=== PATIENT | female | born 1990 | race Caucasian/White ===

== ENCOUNTER 2017-01-06 21:25 | Observation (INO) | payer OTHER ==
[2017-01-06] MEDS ORDERED: TORADOL 30 MG VIAL IVP STA (23:04)
--- NOTE | 2017-01-06 23:07 | DR.GENAD ---
HPI - PCP Primary Care Physician: nfd - Complaint/Symptoms Chief Complaint Doctors Comments: Patient complains of pain and swelling left hand 4th finger for three days getting progressively worst today. States she was cleaning her nails with infection in the tip of her finger that spread up her hand. 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 States she does not have a local doctor. she is unsure of her last tetanus. she had been complaining of fever and chills with severe pain left hand. She denies chest pain, nasuea or vomiting. She denies SOB. Chief Complaint:: left hand 4th digit swollen and red. started 2 days ago. patient was cleaning under fingernail and thinks she went to far Self Treatment fo Chief Complaint: amoxicillin last dose a few hours ago and percocet for pain - Nurses notes reviewed Nurses Notes Review: Yes - Source History Provided: Patient - Mode of Arrival Mode of Arrival: Ambulatory - Timing Onset of Chief Complaint: 01/04/17 Came on: Gradually - Duration Duration: Constant How lon Duration: Days - Location Location: left hand 4th finger - Severity Severity: Moderate - Modifying Factors Worsens:: movement Improves:: nothing PMH - PMH Past Medical History: Yes Past Medical History: Seizures Past Surgical History: Yes Surgical History: Tonsillectomy - Family History History of Family Medical Conditions: No - Social History Does patient currently use any type of tobacco product: Yes Have you used tobacco products in the last 12 months: Yes Type of Tobacco Use: Cigarettes How many years tobacco product used: 10 Does any household member use tobacco: Yes Alcohol Use: Occasionally Do you use any recreational Drugs:: Yes (meth) Lives With: Dad, Mom Lives Where: Home - infectious screening In the last 2 months have you had wt loss of >10#?: NO Have you had fever, night sweats or hemotysis?: No Have you traveled outside the country in the last 6 months?: No Isolation: Standard ROS - Review of Systems Constitutional: No Symptoms Reported, Chills, Fever Eyes: No Symptoms Reported. negative: See HPI, Eye Pain, Blurred Vision, Tearing, Discharge, Photophobia, Diplopia, Other ENTM: No Symptoms Reported. negative: See HPI, Ear Pain, Ear Discharge, Pulling on Ears, Hearing Loss, Nose Pain, Nose Discharge, Epistaxis, Nose Congestion, Mouth Pain, Mouth Swelling, Loose Teeth, Drooling, Throat Pain, Throat Swelling, Ear Foreign Body Respiratoy: No Symptoms Reported. negative: See HPI, Productive Cough, Non- Productive Cough, Moist Cough, Dry Cough, Hacking Cough, Barking Cough, Brassy Cough, Orthopnea, Short of Breath, Stridor, Wheezing, Hemoptysis, Other Cardiovascular: No Symptoms Reported. negative: See HPI, Chest Pain, Edema, Palpitations, Syncope, Cyanosis, Skin Mottling, Other Gastrointestinal/Abdominal: No Symptoms Reported. negative: See HPI, Abdominal Pain, Constipation, Diarrhea, Nausea, Vomiting, Food Intolerance, Other Genitourinary: No Symptoms Reported. negative: See HPI, Discharge, Dysuria, Frequency, Hematuria, Pain, Bleeding, Other Neurological: No Symptoms Reported, Emotional Problems Musculoskeletal: No Symptoms Reported, Left, Hand (4th finger with swelling and black area at the tip and soft area at the time) Integumentary: No Symptoms Reported, Change in Color, Change in Hair/Nails, Lesions, Wound (left fourth finger swelling, dorsal hand swollen with erythema) Hematologic/Lymphatic: No Symptoms Reported Endocrine: No Symptoms Reported Psychiatric: No Symptoms Reported, Anxiety PE - Vital Signs Vitals: Temperature 98.4 F Pulse Rate 109 Respiratory Rate 24 Blood Pressure 166/110 O2 Sat by Pulse Oximetry 100 - General Limitations: No Limitations, Language Barrier General Appearance: Alert, In No Apparent Distress, In Distress (moderate) - Head Head Exam: Normal Inspection, Atraumatic, Normocephalic - Eyes Eye exam: Normal Appearance, PERRL, EOMI. negative: Scleral Icterus, Conjunctival Injection, Nystagmus, Miosis, Mydrasis, Periorbital Swelling, Periorbital Tenderness, Other - ENT ENT Exam: Normal Exam, Normal Oropharynx, Normal External Ear Exam, Mucous Membranes Moist, TM's Normal Bilaterally TM/Canal Exam: Bilateral Normal Nose Exam: Normal Nose Exam. negative: Sinus Tenderness, Nasal Deviation, Crepitus, Septal Hematoma, Laceration, Abrasion, Other Mouth Exam: Normal Inspection. negative: Drooling, Trismus, Lip Swelling, Tongue Elevation, Tongue Swelling, Laceration, Other Throat Exam: Normal Inspection. negative: Tonsillar Erythema, Tonsillomegaly, Tonsillar Exudate, R Peritonsillar Mass, L Peritonsillar Mass, Muffled Voice, Other - Neck Neck Exam: Normal Inspection, Full ROM, Trachea Midline. negative: Tenderness, Meningismus, Lymphadenopathy, Thyromegaly, Other - Chest Chest Inspection: Normal Inspection - Respiratory Respiratory Exam: Normal Lung Sounds Bilat Respiratory Exam: Bilateral Clear to Auscultation - Cardiovascular Cardiovascular Exam: Regular Rate, Normal Rhythm, Normal Heart Sounds - Abdominal Exam Abdominal Exam: Normal Inspection, Normal Bowel Sounds, Soft Abdominal Tenderness: negative: RUQ, RLQ, LUQ, LLQ, Epigastrium, Suprapubic, Diffuse, Mild, Moderate, Severe, Other - Extremities Extremities Exam: Normal Inspection, Full ROM, Tenderness (left hand with swelling 4th finger, 3rd finger with tip 4th with pustular; dorsal hand red, warm, tender.), Normal Capillary Refill - Back Back Exam: Normal Inspection, Full ROM - Neurologic Neurological Exam: Alert, Oriented X3, CN II-XII Intact, Normal Gait, Reflexes Normal - Psychiatric Psychiatric Exam: Normal Affect, Normal Mood - Skin Skin Exam: Warm, Dry, Intact, Normal Color. negative: Rash, Cyanosis, Diaphoresis, Erythema, Pallor, Mottled, Other Course - Consultation Called: :04 Call Returned: 01:04 (Dr. Moran to admit) - Education/Counseling Education/Counseling: Patient Educated On: Treatment, Diagnosis, Needs for Follow Up ROR - Labs Reviewed Laboratory Results Reviewed?: Yes (All labs and x-ray results reviewed and discussed with patient) Result Diagrams: 01/06/17 23:30 01/06/17 23:30 Laboratory: WBC 11.7 X10^3/uL (3.6-10.0) H 01/06/17 23:30 RBC 4.50 X10^6/uL (3.5-5.4) 01/06/17 23:30 Hgb 13.3 g/dL (12.0-16.0) 01/06/17 23:30 Hct 39.6 % (36.0-47.0) 01/06/17 23:30 MCV 88.1 fL (80.0-100.0) 01/06/17 23:30 MCH 29.5 pg (27.0-34.0) 01/06/17 23:30 MCHC 33.5 g/dL (33.0-35.0) 01/06/17 23:30 RDW 12.5 % (11.6-16.5) 01/06/17 23: Plt Count 238 X10^3/uL (150.0-450.0) 01/06/17: MPV 9.4 fL (7.4-11.0) 01/06/17 23: Neut % 67.1 % (42.0-75.0) 01/06/17: Lymph % 20.0 % (21.0-51.0) L 01/06/17 23: [place] % 10.7 % (0.0-13.0) 01/06/17: Eos % 1.2 % (0.9-2.9) 01/06/17: Baso % 1.0 % (0.2-1.0) 01/06/17: Neut # 7.8 x10^3/uL (2.2-4.8) H 01/06/17: Lymph # 2.3 X10^3/uL (1.3-2.9) 01/06/17 23: [place] # 1.2 x10^3/uL (0.3-0.8) H 01/06/17: Eos # 0.1 x10^3/uL (0.0-0.2) 01/06/17: Baso # 0.1 X10^3/uL (0.0-0.1) 01/06/17 23: Absolute Nucleated RBC 0.0 /100WBC 01/06/17 23: Sodium 141 mmol/L (136-145) 01/06/17 23: Corrected Sodium 141 mmol/L (136-145) 01/06/17 23: Potassium 4.5 mmol/L (3.5-5.1) 01/06/17: Chloride 103 mmol/L (98-107) 01/06/17: Carbon Dioxide 31.0 mmol/L (21-32) 01/06/17 23:30 BUN 9 mg/dL (7-18) 01/06/17 23: Creatinine 0.63 mg/dL (0.55-1.02) 01/06/17: Est GFR (MDRD) Af Amer > 60 (>60) 01/06/17 23:30 Est GFR (MDRD) Non-Af > 60 (>60) 01/06/17 23:30 Glucose 120 mg/dL (65-99) H 01/06/17 23:30 Calcium 9.2 mg/dL (8.5-10.1) 01/06/17 23:30 Corrected Calcium TNP 01/06/17 23:30 Total Bilirubin 0.30 mg/dL (0.2-1.0) 01/06/17 23:30 AST 24 Units/L (15-37) 01/06/17 23:30 ALT 23 Units/L (12-78) 01/06/17 23:30 Alkaline Phosphatase 130 Units/L (46-116) H 01/06/17 23:30 Total Protein 7.4 g/dL (6.4-8.2) 01/06/17 23:30 Albumin 3.7 g/dL (3.4-5.0) 01/06/17 23:30 Globulin 3.7 g/dL (2.5-4.5) 01/06/17 23:30 Albumin/Globulin Ratio 1.0 Ratio (1.1-2.1) L 01/06/17 23:30 HCG, Qual Negative <10 mIU/mL 01/06/17 23:30 Specimen Type Clean catch urine 01/07/17 00:11 Urine Color Yellow (YELLOW) 01/07/17 00:11 Urine Appearance Clear (CLEAR) 01/07/17 00:11 Urine pH 7.0 (5.0 - 8.0) 01/07/17 00:11 Ur Specific [place] 1.015 (1.000-1.030) 01/07/17 00:11 Urine Protein Negative (NEGATIVE) 01/07/17 00:11 Urine Glucose (UA) Negative (NEGATIVE) 01/07/17 00:11 Urine Ketones Negative (NEGATIVE) 01/07/17 00:11 Urine Occult Blood Negative (NEGATIVE) 01/07/17 00:11 Urine Nitrite Negative (NEGATIVE) 01/07/17 00:11 Urine Bilirubin Negative (NEGATIVE) 01/07/17 00:11 Urine Urobilinogen 1+ (NORMAL) 01/07/17 00:11 Ur Leukocyte Esterase 1+ (NEGATIVE) 01/07/17 00:11 Urine RBC 0-3 /HPF (NEGATIVE) 01/07/17 00:11 Urine WBC 1-4 /HPF (NEGATIVE) 01/07/17 00:11 Ur Squamous Epith Cells Numerous /HPF (NEGATIVE) 01/07/17 00:11 Urine Bacteria Trace /HPF (NEGATIVE) 01/07/17 00:11 Ur Culture Indicated? No/not ordered 01/07/17 00:11 Urine Opiates Screen Positive (NEG=<300) A 01/07/17 00:11 Urine Methadone Screen Negative (NEG=<300) 01/07/17 00:11 Ur Barbiturates Screen Negative (NEG=<200) 01/07/17 00:11 Ur Phencyclidine Scrn Negative (NEG=<25) 01/07/17 00:11 Ur Amphetamines Screen Positive (NEG=<1000) A 01/07/17 00:11 U Benzodiazepines Scrn Positive (NEG=<200) A 01/07/17 00:11 Urine Cocaine Screen Negative (NEG=<300) 01/07/17 00:11 U Marijuana (THC) Screen Positive (NEG=<50) A 01/07/17 00:11 - XRAY XRAY Interpreted by: Radiologist (left Hand x-ray: No acute fracture dislocation within the left hand; moderate soft tissue swelling) - Diagnosis Discharge Problem: Cellulitis of left hand, Hyperglycemia, multiple drug usage, Essential hypertension - Discharge Plan Disposition: ADMITTED INPATIENT Condition: Stable - Follow ups/Referrals Follow ups/Referrals: NFD,None [Primary Care Provider] - 3 days - Instructions
[2017-01-06] MEDS ORDERED: ADACEL TDaP IM ONE ×2 (23:13→23:53)
[2017-01-06] MEDS ORDERED: TORADOL 30 MG VIAL ONE (23:32)
[2017-01-06] MEDS: NS 1000 ML 1,000 ML IV SCH (23:46)
[2017-01-06 23:52] LABS: BASOPHILS # (AUTO) 0.1 X10^3/uL (0.0-0.1); EOSINOPHILS # (AUTO) 0.1 x10^3/uL (0.0-0.2); EOSINOPHILS % (AUTO) 1.2 % (0.9-2.9); HEMATOCRIT 39.6 % (36.0-47.0); HEMOGLOBIN 13.3 g/dL (12.0-16.0); LYMPHOCYTES # (AUTO) 2.3 X10^3/uL (1.3-2.9); MEAN CORPUSCULAR HEMOGLOBIN 29.5 pg (27.0-34.0); MEAN CORPUSCULAR HGB CONC 33.5 g/dL (33.0-35.0); MEAN CORPUSCULAR VOLUME 88.1 fL (80.0-100.0); MEAN PLATELET VOLUME 9.4 fL (7.4-11.0); MONOCYTES # (AUTO) 1.2 x10^3/uL (0.3-0.8); MONOCYTES % (AUTO) 10.7 % (0.0-13.0); NEUTROPHILS # (AUTO) 7.8 x10^3/uL (2.2-4.8); NEUTROPHILS % (AUTO) 67.1 % (42.0-75.0); PLATELET COUNT 238 X10^3/uL (150.0-450.0); RED CELL DISTRIBUTION WIDTH 12.5 % (11.6-16.5); WHITE BLOOD COUNT 11.7 X10^3/uL (3.6-10.0)
[2017-01-06 23:56] LABS: SERUM PREGNANCY TEST, QUAL NEGATIVE <10 mIU/mL
[2017-01-07] LABS: ALANINE AMINOTRANSFERASE 23 Units/L (12-78); ALBUMIN 3.7 g/dL (3.4-5.0); ALKALINE PHOSPHATASE 130 Units/L (46-116); ASPARTATE AMINO TRANSFERASE 24 Units/L (15-37); BLOOD UREA NITROGEN 9 mg/dL (7-18); CALCIUM 9.2 mg/dL (8.5-10.1); CHLORIDE 103 mmol/L (98-107); COR NA(FOR HYPERGLY) 141 mmol/L (136-145); CREATININE 0.63 mg/dL (0.55-1.02); GLUCOSE 120 mg/dL (65-99); SODIUM 141 mmol/L (136-145); TOTAL PROTEIN 7.4 g/dL (6.4-8.2); eGFR BLACK RACES > 60 (>60); eGFR NON BLACK RACES > 60 (>60)
[2017-01-07 00:22] LABS: BILIRUBIN,URINE NEGATIVE (NEGATIVE); BLOOD/HEMOGLOBIN,URINE NEGATIVE (NEGATIVE); GLUCOSE, URINE NEGATIVE (NEGATIVE); KETONES,URINE NEGATIVE (NEGATIVE); LEUKOCYTE ESTERASE ,URINE 1+ (NEGATIVE); NITRITES,URINE NEGATIVE (NEGATIVE); PROTEIN,URINE NEGATIVE (NEGATIVE); UROBILINOGEN,URINE 1+ (NORMAL)
[2017-01-07 00:29] LABS: APPEARANCE,URINE CLEAR (CLEAR); COLOR,URINE YELLOW (YELLOW); RBC,URINE 0-3 /HPF (NEGATIVE); SQUAMOUS EPITHELIAL CELL,UR NUMEROUS /HPF (NEGATIVE)
[2017-01-07 00:30] LABS: BACTERIA,URINE TRACE /HPF (NEGATIVE)
--- NOTE | 2017-01-07 00:30 | RAD ---
Three views of the left hand Indication: Hand pain most severely affecting the 4th digit without trauma Findings: No acute fracture dislocation within the left hand. Soft tissue swelling is noted within t he 4th digit. No periosteal reaction or soft tissue gas. No radiopaque foreign body. Radiocarpal ali gnment is maintained. Impression: Moderate soft tissue swelling within the ring finger without soft tissue gas or perioste al reaction to suggest osteomyelitis. Findingsare most consistent with soft tissue infection/cellul itis. No acute fracture dislocation within the left hand. Reported By:
[2017-01-07] MEDS ORDERED: NS 100 ML IV 100 ML IV ONE ×2 (00:45→06:31)
[2017-01-07] MEDS ORDERED: MERREM VIAL ONE ×2 (00:45→06:31)
[2017-01-07] MEDS: MERREM VIAL 1,000 MG in NS 100 ML IV 100 ML IV SCH ×3 (00:56→14:28)
[2017-01-07] MEDS ORDERED: VANCOMYCIN 1 GM PREMIX (ADDVANTAGE) 250 ML IV STA (01:09)
[2017-01-07 05:00] VITALS: BMI 21.6
[2017-01-07 06:21] LABS: BLOOD UREA NITROGEN 6 mg/dL (7-18); CALCIUM 8.5 mg/dL (8.5-10.1); CARBON DIOXIDE 25.7 mmol/L (21-32); CHLORIDE 105 mmol/L (98-107); CREATININE 0.54 mg/dL (0.55-1.02); GLUCOSE 100 mg/dL (65-99); SODIUM 140 mmol/L (136-145); eGFR BLACK RACES > 60 (>60); eGFR NON BLACK RACES > 60 (>60)
[2017-01-07 06:22] LABS: BASOPHILS % (AUTO) 0.4 % (0.2-1.0); EOSINOPHILS # (AUTO) 0.1 x10^3/uL (0.0-0.2); EOSINOPHILS % (AUTO) 1.3 % (0.9-2.9); HEMATOCRIT 39.2 % (36.0-47.0); HEMOGLOBIN 13.4 g/dL (12.0-16.0); LYMPHOCYTES # (AUTO) 2.4 X10^3/uL (1.3-2.9); LYMPHOCYTES % (AUTO) 26.2 % (21.0-51.0); MEAN CORPUSCULAR HGB CONC 34.3 g/dL (33.0-35.0); MEAN CORPUSCULAR VOLUME 87.4 fL (80.0-100.0); MEAN PLATELET VOLUME 9.4 fL (7.4-11.0); MONOCYTES # (AUTO) 1.1 x10^3/uL (0.3-0.8); MONOCYTES % (AUTO) 12.4 % (0.0-13.0); NEUTROPHILS # (AUTO) 5.4 x10^3/uL (2.2-4.8); NEUTROPHILS % (AUTO) 59.7 % (42.0-75.0); PLATELET COUNT 223 X10^3/uL (150.0-450.0); RED BLOOD COUNT 4.48 X10^6/uL (3.5-5.4); RED CELL DISTRIBUTION WIDTH 12.4 % (11.6-16.5); WHITE BLOOD COUNT 9.1 X10^3/uL (3.6-10.0)
[2017-01-07] MEDS: TORADOL 30 MG VIAL IVP PRN ×2 (09:24→16:16)
[2017-01-07] MEDS: NS 1000 ML 1,000 ML IV SCH (14:27)
--- NOTE | 2017-01-07 16:35 | MRI ---
History: Redness, swelling, 4th digit pain. Rule out abscess. Technique: Multiplanar, multi sequence MR imaging of the left hand was performed without IV contrast . Comparison:NONE Findings: There is edema of the subcutaneous adipose tissue along the dorsal aspect of the hand overlying the 4th and 5th metacarpals extending distally with circumferential involvement of the ring finger from the MCP through the level the distal phalanx. Evaluation for abscess is limited by the lack of IV co ntrast. There is confluent fluid signal noted along the dorsal aspect of the 4th PIP joint which measures 11 mm in length by 2 mm in thickness by 12 mm transverse. There is fluid within the 4th PIP joint. Myaur ng the volar aspect of the 4th proximal phalanx distally, there is a fluid collection measuring 7 mm transverse by 2 mm in 10 mm in length, deep to the flexor tendon, likely a distended PIP joint caps ule. See sagittal PD fat sat image 9 series 801, and axial STIR series 701, image 13. No bone marrow signal abnormality is seen to suggest osteomyelitis. There is trace fluid within the 2nd through 5th flexor tendon sheaths at the level metacarpals, most prominent within the 4th flexor tendons. Impression: 1. Nonspecific subcutaneous edema along the dorsal aspect of the hand overlying the 4th and 5th meta carpals extending distally to involve the ring finger circumferentially. There is a small focus of c onfluent fluid signal over the dorsal aspect of the 4th PIP joint which may represent a small develo ping abscess however evaluation is limited by the lack of IV contrast. 2. 4th PIP joint effusion. A septic joint is not excluded given the adjacent inflammatory changes. S ee discussion above. No bone marrow signal abnormality or destructive bony changes are seen to sugge st osteomyelitis at this time. 3. Mild flexor tenosynovitis predominately involving the 4th flexor tendons at the level of the meta carpal. 4. Other findings as above Reported By:
[2017-01-07] MEDS: DILAUDID INJ IVP PRN (21:03)
[2017-01-08] MEDS: TORADOL 30 MG VIAL IVP PRN ×2 (00:03→08:33)
[2017-01-08] MEDS: PHENERGAN TAB 25 MG PO PRN (00:05)
[2017-01-08] MEDS: NS 1000 ML 1,000 ML IV SCH ×3 (04:56→17:40)
[2017-01-08] MEDS: DILAUDID INJ IVP PRN ×2 (05:24→20:00)
[2017-01-08 06:18] LABS: BASOPHILS # (AUTO) 0.1 X10^3/uL (0.0-0.1); BASOPHILS % (AUTO) 0.5 % (0.2-1.0); EOSINOPHILS # (AUTO) 0.2 x10^3/uL (0.0-0.2); EOSINOPHILS % (AUTO) 1.5 % (0.9-2.9); HEMATOCRIT 37.3 % (36.0-47.0); HEMOGLOBIN 12.8 g/dL (12.0-16.0); LYMPHOCYTES # (AUTO) 1.8 X10^3/uL (1.3-2.9); LYMPHOCYTES % (AUTO) 16.4 % (21.0-51.0); MEAN CORPUSCULAR HEMOGLOBIN 30.2 pg (27.0-34.0); MEAN CORPUSCULAR HGB CONC 34.5 g/dL (33.0-35.0); MEAN CORPUSCULAR VOLUME 87.6 fL (80.0-100.0); MEAN PLATELET VOLUME 9.9 fL (7.4-11.0); MONOCYTES # (AUTO) 0.8 x10^3/uL (0.3-0.8); MONOCYTES % (AUTO) 7.4 % (0.0-13.0); NEUTROPHILS # (AUTO) 8.1 x10^3/uL (2.2-4.8); NEUTROPHILS % (AUTO) 74.2 % (42.0-75.0); PLATELET COUNT 227 X10^3/uL (150.0-450.0); RED BLOOD COUNT 4.25 X10^6/uL (3.5-5.4); RED CELL DISTRIBUTION WIDTH 12.6 % (11.6-16.5)
[2017-01-08 06:20] LABS: BLOOD UREA NITROGEN 3 mg/dL (7-18); CALCIUM 8.3 mg/dL (8.5-10.1); CARBON DIOXIDE 24.1 mmol/L (21-32); CHLORIDE 107 mmol/L (98-107); COR NA(FOR HYPERGLY) 141 mmol/L (136-145); CREATININE 0.49 mg/dL (0.55-1.02); GLUCOSE 118 mg/dL (65-99); SODIUM 141 mmol/L (136-145); eGFR BLACK RACES > 60 (>60); eGFR NON BLACK RACES > 60 (>60)
[2017-01-08] MEDS ORDERED: ANCEF VIAL 1 GM ONE (07:37)
[2017-01-08] MEDS ORDERED: BACITRACIN VIAL ONE (07:38)
[2017-01-08] MEDS ORDERED: MARCAINE 0.25% INJ ONE (08:02)
[2017-01-08] MEDS ORDERED: XYLOCAINE 1 % (PLAIN) ONE (08:02)
[2017-01-08] MEDS: NS 50 ML IV + SPIKE MINIBAG* 50 ML IV ONE ×2 (08:45→09:25)
[2017-01-08] MEDS ORDERED: NS IRRIGATION 1000 ML 1,000 ML with BACITRACIN VIAL 50,000 UNT IR ONE ×4 (08:46)
[2017-01-08] MEDS: D5 1/2 NS 1000 ML 1,000 ML IV ONE ×2 (08:46→09:30)
[2017-01-08] MEDS ORDERED: D5 LR 1000 ML 1,000 ML IV ONE (08:50)
[2017-01-08] MEDS ORDERED: FENTANYL INJ 100 mcg ONE (09:09)
[2017-01-08] MEDS ORDERED: PHENERGAN INJ 25 MG IVP PRN (09:21)
[2017-01-08] MEDS ORDERED: REGLAN INJ 10 MG VIAL IVP PRN (09:21)
[2017-01-08] MEDS ORDERED: DILAUDID INJ IVP PRN (09:21)
[2017-01-08] MEDS ORDERED: ZOFRAN INJ 4 MG VIAL IVP PRN (09:21)
[2017-01-08] MEDS ORDERED: BENADRYL INJ 50 MG VIAL IVP PRN (09:21)
[2017-01-08] MEDS ORDERED: NS IRRIGATION 1000 ML 1,000 ML IR ONE ×2 (10:15→10:20)
[2017-01-08] MEDS ORDERED: BACTROBAN OINT ONE (10:21)
[2017-01-08] MEDS ORDERED: DILAUDID INJ ONE (10:26)
[2017-01-08] MEDS ORDERED: HYDROGEN PEROXIDE 3% ONE (10:45)
[2017-01-08] MEDS ORDERED: MERREM VIAL 1,000 MG in NS 100 ML IV + SPIKE MINIBAG* 100 ML IV SCH (12:41)
[2017-01-08] MEDS: TEFLARO 600 MG in NS 50 ML IV + SPIKE MINIBAG* 50 ML IV SCH ×2 (15:13→20:00)
[2017-01-08] MEDS ORDERED: REGLAN INJ 10 MG VIAL ONE ×2 (15:52→16:09)
[2017-01-08] MEDS ORDERED: DIPRIVAN VIAL ONE ×2 (15:52→16:09)
[2017-01-08] MEDS ORDERED: ZOFRAN INJ 4 MG VIAL ONE ×2 (15:52→16:09)
[2017-01-08] MEDS ORDERED: VERSED ONE ×2 (15:52→16:09)
[2017-01-08] MEDS ORDERED: SUPRANE IN ONE ×2 (15:52→16:09)
[2017-01-08] MEDS ORDERED: VANCOMYCIN 1 GM PREMIX (ADDVANTAGE) 250 ML IV SCH (17:00)
[2017-01-08] MEDS ORDERED: PHARMACY CONSULT - VANCOMYCIN XX SCH (17:00)
[2017-01-09] MEDS: NS 1000 ML 1,000 ML IV SCH ×3 (03:00→14:21)
[2017-01-09 06:31] LABS: BASOPHILS % (AUTO) 0.4 % (0.2-1.0); EOSINOPHILS # (AUTO) 0.1 x10^3/uL (0.0-0.2); EOSINOPHILS % (AUTO) 2.1 % (0.9-2.9); HEMATOCRIT 34.6 % (36.0-47.0); HEMOGLOBIN 11.8 g/dL (12.0-16.0); LYMPHOCYTES # (AUTO) 1.6 X10^3/uL (1.3-2.9); LYMPHOCYTES % (AUTO) 23.2 % (21.0-51.0); MEAN CORPUSCULAR HEMOGLOBIN 29.9 pg (27.0-34.0); MEAN CORPUSCULAR HGB CONC 34.2 g/dL (33.0-35.0); MEAN CORPUSCULAR VOLUME 87.5 fL (80.0-100.0); MEAN PLATELET VOLUME 9.2 fL (7.4-11.0); MONOCYTES # (AUTO) 0.6 x10^3/uL (0.3-0.8); MONOCYTES % (AUTO) 8.5 % (0.0-13.0); NEUTROPHILS # (AUTO) 4.7 x10^3/uL (2.2-4.8); NEUTROPHILS % (AUTO) 65.8 % (42.0-75.0); PLATELET COUNT 246 X10^3/uL (150.0-450.0); RED BLOOD COUNT 3.95 X10^6/uL (3.5-5.4); RED CELL DISTRIBUTION WIDTH 12.5 % (11.6-16.5); WHITE BLOOD COUNT 7.1 X10^3/uL (3.6-10.0)
[2017-01-09 06:44] LABS: ALANINE AMINOTRANSFERASE 16 Units/L (12-78); ALBUMIN 2.6 g/dL (3.4-5.0); ALKALINE PHOSPHATASE 96 Units/L (46-116); ASPARTATE AMINO TRANSFERASE 12 Units/L (15-37); BLOOD UREA NITROGEN 2 mg/dL (7-18); CALCIUM 8.1 mg/dL (8.5-10.1); CARBON DIOXIDE 27.6 mmol/L (21-32); CHLORIDE 107 mmol/L (98-107); COR CA(FOR HYPOALB) 9.2 mg/dL (8.5-10.1); CREATININE 0.47 mg/dL (0.55-1.02); GLUCOSE 103 mg/dL (65-99); SODIUM 142 mmol/L (136-145); TOTAL PROTEIN 6.1 g/dL (6.4-8.2); eGFR BLACK RACES > 60 (>60); eGFR NON BLACK RACES > 60 (>60)
[2017-01-09] MEDS: TEFLARO 600 MG in NS 50 ML IV + SPIKE MINIBAG* 50 ML IV SCH ×2 (09:15→20:10)
[2017-01-09] MEDS: DILAUDID INJ IVP PRN ×3 (09:16→20:09)
[2017-01-09] MEDS: PHENERGAN TAB 25 MG PO PRN (09:17)
--- NOTE | 2017-01-09 10:33 | DR.H&P ---
H&P - History & Physical for Day of: H&P Date: 01/07/17 - Chief Complaint Chief Complaint: Infected left 4th finger - Allergies Allergies/Adverse Reactions: Allergies Allergy/AdvReac Type Severity Reaction Status Date / Time No Known Drug Allergy Allergy Verified 11/26/13 13:06 - History of Present Illness History of Present Illness: The patient is a 26-year-old white female who presented to the [facility] emergency room complaining of increasing pain, erythema, and soft tissue swelling involving the distal aspect of the fourth left finger. Patient states approximate 4-5 days ago she was "digging" at her cuticle on the involved digit with a pocket knife - it should be noted the patient was very vague with this description and there was definite suspicion that this account was fictitious and patient was actually attempting to inject a vein with a hypodermic needle, it should also be noted the patient was noted to have a urine drug screen positive for amphetamines, marijuana, opiates, and benzodiazepines. The patient was subsequently admitted for further workup. - Past Medical History Past Medical History: Seizures - Past Surgical History Surgical History: Tonsillectomy - Social History Does patient currently use any type of tobacco product: Yes Have you used tobacco products in the last 12 months: Yes Type of Tobacco Use: Cigarettes How many years tobacco product used: 10 Does any household member use tobacco: Yes Alcohol Use: Occasionally Drug Use: Methamphetamine, Marijuana - Medications Home Medications: NK [NK] 01/07/17 [History Confirmed 01/07/17] - Review of Systems Constitutional: No Symptoms Reported Eyes: No Symptoms Reported ENT: No Symptoms Reported Respiratory: No Symptoms Reported Cardiovascular: No Symptoms Reported Gastrointestinal: No Symptoms Reported Genitourinary: No Symptoms Reported Musculoskeletal: See HPI Skin: See HPI Neurological: No Symptoms Reported - Physical Exam Vital Signs: Temperature 98.0 F Pulse Rate [Right Brachial] 83 Pulse Rate 87 Respiratory Rate 19 Blood Pressure [Right Arm] 132/91 Blood Pressure 141/83 O2 Sat by Pulse Oximetry 96 Oriented: Normal Eyes: Normal Ear: Normal Nose: Normal Throat: Normal Respiratory: Clear Throughout Cardiovascular: Normal : Normal Auscultation: Bowel Sounds: Normal Palpation: Normal Tenderness: Normal Skin: Other (see musculoskeletal exam) Musculoskeletal: Left, Hand (Marked erythema and soft tissue swelling was noted involving the left fourth digit with obvious fluctuance noted around the nail bed. No purulent drainage was noted. No ulceration was noted. The area was markedly tender to palpation.) Psychiatric: Normal Mood Description: Calm Affect: Normal Speech Pattern: Clear - Assessment/Plan (1) Cellulitis and abscess of finger, unspecified Narrative Support Text: left fourth digit Status: Acute Plan: 1. Admit for outpatient observation. 2. Vancomycin 1 g IV every 12 hours. 3. DC meropenem. 4. Orthopedic consultation. 5. For further orders see chart (2) Paronychia of finger of left hand Status: Acute Plan: as above
--- NOTE | 2017-01-09 10:42 | PCM.PROG ---
Progress Note - Progress Note for Day of Date: 01/08/17 - Subjective Subjective: The patient is a 26-year-old white female who was admitted to [facility] on 01/07/2017 secondary to abscess formation and surrounding cellulitis involving the left fourth finger. Patient has been seen in consultation by orthopedics as undergone surgical I&D earlier today. - Past Medical Family Social History Past Med/Fam/Surg Hx: No changes since H&P Allergies: Allergies No Known Drug Allergy Allergy (Verified 11/26/13 13:06) - Review of Systems ROS: No change since H&P - Vital Signs and I&O's Vital Signs: Temperature 98.0 F Pulse Rate [Right Brachial] 83 Pulse Rate 87 Respiratory Rate 19 Blood Pressure [Right Arm] 132/91 Blood Pressure 141/83 O2 Sat by Pulse Oximetry 96 Intake and Output: Intake & Output 01/06/17 01/07/17 01/08/17 01/09/17 11:59 11:59 11:59 11:59 Intake Total 850 4475 1680 Output Total 2600 Balance 850 1875 1680 - Physical Exam Oriented: Normal Eyes: Normal Ear: Normal Nose: Normal Throat: Normal Cardiovascular: Normal : Normal Auscultation: Bowel Sounds: Normal Tenderness: Normal Skin: Other (see musculoskeletal exam) Musculoskeletal: Left, Hand (Marked erythema and soft tissue swelling was noted involving the left fourth digit with obvious fluctuance noted around the nail bed. No purulent drainage was noted. No ulceration was noted. The area was markedly tender to palpation.) Psychiatric: Normal Mood Description: Calm Affect: Normal Speech Pattern: Clear - Laboratory and Diagnostics Result Diagrams: 01/09/17 05:40 01/09/17 05:40 Labs: 01/08/17 10:29 Drainage Gram Stain - Final Laboratory WBC 7.1 X10^3/uL (3.6-10.0) 01/09/17 05:40 RBC 3.95 X10^6/uL (3.5-5.4) 01/09/17 05:40 Hgb 11.8 g/dL (12.0-16.0) L 01/09/17 05:40 Hct 34.6 % (36.0-47.0) L 01/09/17 05:40 MCV 87.5 fL (80.0-100.0) 01/09/17 05:40 MCH 29.9 pg (27.0-34.0) 01/09/17 05:40 MCHC 34.2 g/dL (33.0-35.0) 01/09/17 05:40 RDW 12.5 % (11.6-16.5) 01/09/17 05:40 Plt Count 246 X10^3/uL (150.0-450.0) 01/09/17 05:40 MPV 9.2 fL (7.4-11.0) 01/09/17 05:40 Neut % 65.8 % (42.0-75.0) 01/09/17 05:40 Lymph % 23.2 % (21.0-51.0) 01/09/17 05:40 [place] % 8.5 % (0.0-13.0) 01/09/17 05:40 Eos % 2.1 % (0.9-2.9) 01/09/17 05:40 Baso % 0.4 % (0.2-1.0) 01/09/17 05:40 Neut # 4.7 x10^3/uL (2.2-4.8) 01/09/17 05:40 Lymph # 1.6 X10^3/uL (1.3-2.9) 01/09/17 05:40 [place] # 0.6 x10^3/uL (0.3-0.8) 01/09/17 05:40 Eos # 0.1 x10^3/uL (0.0-0.2) 01/09/17 05:40 Baso # 0.0 X10^3/uL (0.0-0.1) 01/09/17 05:40 Absolute Nucleated RBC 0.0 /100WBC 01/09/17 05:40 ESR 17 MM/HOUR (0-20) 01/07/17 05:40 Sodium 142 mmol/L (136-145) 01/09/17 05:40 Corrected Sodium TNP 01/09/17 05:40 Potassium 3.7 mmol/L (3.5-5.1) 01/09/17 05:40 Chloride 107 mmol/L (98-107) 01/09/17 05:40 Carbon Dioxide 27.6 mmol/L (21-32) 01/09/17 05:40 BUN 2 mg/dL (7-18) L 01/09/17 05:40 Creatinine 0.47 mg/dL (0.55-1.02) L 01/09/17 05:40 Est GFR (MDRD) Af Amer > 60 (>60) 01/09/17 05:40 Est GFR (MDRD) Non-Af > 60 (>60) 01/09/17 05:40 Glucose 103 mg/dL (65-99) H 01/09/17 05:40 Calcium 8.1 mg/dL (8.5-10.1) L 01/09/17 05:40 Corrected Calcium 9.2 mg/dL (8.5-10.1) 01/09/17 05:40 Total Bilirubin 0.10 mg/dL (0.2-1.0) L 01/09/17 05:40 AST 12 Units/L (15-37) L 01/09/17 05:40 ALT 16 Units/L (12-78) 01/09/17 05:40 Alkaline Phosphatase 96 Units/L (46-116) 01/09/17 05:40 C-Reactive Protein 76.00 mg/L (0-3.0) H 01/07/17 05:40 Total Protein 6.1 g/dL (6.4-8.2) L 01/09/17 05:40 Albumin 2.6 g/dL (3.4-5.0) L 01/09/17 05:40 Globulin 3.5 g/dL (2.5-4.5) 01/09/17 05:40 Albumin/Globulin Ratio 0.7 Ratio (1.1-2.1) L 01/09/17 05:40 HCG, Qual Negative <10 mIU/mL 01/06/17 23:30 Specimen Type Clean catch urine 01/07/17 00:11 Urine Color Yellow (YELLOW) 01/07/17 00:11 Urine Appearance Clear (CLEAR) 01/07/17 00:11 Urine pH 7.0 (5.0 - 8.0) 01/07/17 00:11 Ur Specific [place] 1.015 (1.000-1.030) 01/07/17 00:11 Urine Protein Negative (NEGATIVE) 01/07/17 00:11 Urine Glucose (UA) Negative (NEGATIVE) 01/07/17 00:11 Urine Ketones Negative (NEGATIVE) 01/07/17 00:11 Urine Occult Blood Negative (NEGATIVE) 01/07/17 00:11 Urine Nitrite Negative (NEGATIVE) 01/07/17 00:11 Urine Bilirubin Negative (NEGATIVE) 01/07/17 00:11 Urine Urobilinogen 1+ (NORMAL) 01/07/17 00:11 Ur Leukocyte Esterase 1+ (NEGATIVE) 01/07/17 00:11 Urine RBC 0-3 /HPF (NEGATIVE) 01/07/17 00:11 Urine WBC 1-4 /HPF (NEGATIVE) 01/07/17 00:11 Ur Squamous Epith Cells Numerous /HPF (NEGATIVE) 01/07/17 00:11 Urine Bacteria Trace /HPF (NEGATIVE) 01/07/17 00:11 Ur Culture Indicated? No/not ordered 01/07/17 00:11 Urine Opiates Screen Positive (NEG=<300) A 01/07/17 00:11 Urine Methadone Screen Negative (NEG=<300) 01/07/17 00:11 Ur Barbiturates Screen Negative (NEG=<200) 01/07/17 00:11 Ur Phencyclidine Scrn Negative (NEG=<25) 01/07/17 00:11 Ur Amphetamines Screen Positive (NEG=<1000) A 01/07/17 00:11 U Benzodiazepines Scrn Positive (NEG=<200) A 01/07/17 00:11 Urine Cocaine Screen Negative (NEG=<300) 01/07/17 00:11 U Marijuana (THC) Screen Positive (NEG=<50) A 01/07/17 00:11 - Plan (1) Cellulitis and abscess of finger, unspecified Status: Acute Plan: 1. CBC and BMP. 2. Vancomycin 1 g IV every 12 hours. 3. DC meropenem. 4. Orthopedic consultation in progress; s/p surgical I&D earlier today. 5. For further orders see chart (2) Paronychia of finger of left hand Status: Acute Plan: as above
[2017-01-09] MEDS: NICODERM PATCH 21 MG/24 HR TD SCH (11:02)
--- NOTE | 2017-01-09 16:48 | PCM.PROG ---
Progress Note - Progress Note for Day of Date: 01/09/17 - Subjective Subjective: The patient is a 26-year-old white female who was admitted to [facility] on 01/07/2017 secondary to abscess formation and surrounding cellulitis involving the left fourth finger. Patient has been seen in consultation by orthopedics as undergone surgical I&D on 01/08. - Past Medical Family Social History Past Med/Fam/Surg Hx: No changes since H&P Allergies: Allergies No Known Drug Allergy Allergy (Verified 11/26/13 13:06) - Review of Systems ROS: No change since H&P - Vital Signs and I&O's Vital Signs: Temperature 98.1 F Pulse Rate [Right Brachial] 90 Pulse Rate 87 Respiratory Rate 20 Blood Pressure [Right Arm] 141/93 Blood Pressure 141/83 O2 Sat by Pulse Oximetry 97 Intake and Output: Intake & Output 01/07/17 01/08/17 01/09/17 01/10/17 11:59 11:59 11:59 11:59 Intake Total 850 4475 1680 840 Output Total 2600 Balance 850 1875 1680 840 - Physical Exam Oriented: Normal Eyes: Normal Ear: Normal Nose: Normal Throat: Normal Cardiovascular: Normal : Normal Auscultation: Bowel Sounds: Normal Tenderness: Normal Skin: Other (see musculoskeletal exam) Musculoskeletal: Left, Hand (clean and dry post op dressing intact. The area was markedly tender to palpation.) Psychiatric: Normal Mood Description: Calm Affect: Normal Speech Pattern: Clear - Laboratory and Diagnostics Result Diagrams: 01/09/17 05:40 01/09/17 05:40 Labs: 01/08/17 10:29 Drainage Gram Stain - Final 01/08/17 10:29 Drainage Wound Culture - Preliminary Laboratory WBC 7.1 X10^3/uL (3.6-10.0) 01/09/17 05:40 RBC 3.95 X10^6/uL (3.5-5.4) 01/09/17 05:40 Hgb 11.8 g/dL (12.0-16.0) L 01/09/17 05:40 Hct 34.6 % (36.0-47.0) L 01/09/17 05:40 MCV 87.5 fL (80.0-100.0) 01/09/17 05:40 MCH 29.9 pg (27.0-34.0) 01/09/17 05:40 MCHC 34.2 g/dL (33.0-35.0) 01/09/17 05:40 RDW 12.5 % (11.6-16.5) 01/09/17 05:40 Plt Count 246 X10^3/uL (150.0-450.0) 01/09/17 05:40 MPV 9.2 fL (7.4-11.0) 01/09/17 05:40 Neut % 65.8 % (42.0-75.0) 01/09/17 05:40 Lymph % 23.2 % (21.0-51.0) 01/09/17 05:40 [place] % 8.5 % (0.0-13.0) 01/09/17 05:40 Eos % 2.1 % (0.9-2.9) 01/09/17 05:40 Baso % 0.4 % (0.2-1.0) 01/09/17 05:40 Neut # 4.7 x10^3/uL (2.2-4.8) 01/09/17 05:40 Lymph # 1.6 X10^3/uL (1.3-2.9) 01/09/17 05:40 [place] # 0.6 x10^3/uL (0.3-0.8) 01/09/17 05:40 Eos # 0.1 x10^3/uL (0.0-0.2) 01/09/17 05:40 Baso # 0.0 X10^3/uL (0.0-0.1) 01/09/17 05:40 Absolute Nucleated RBC 0.0 /100WBC 01/09/17 05:40 ESR 17 MM/HOUR (0-20) 01/07/17 05:40 Sodium 142 mmol/L (136-145) 01/09/17 05:40 Corrected Sodium TNP 01/09/17 05:40 Potassium 3.7 mmol/L (3.5-5.1) 01/09/17 05:40 Chloride 107 mmol/L (98-107) 01/09/17 05:40 Carbon Dioxide 27.6 mmol/L (21-32) 01/09/17 05:40 BUN 2 mg/dL (7-18) L 01/09/17 05:40 Creatinine 0.47 mg/dL (0.55-1.02) L 01/09/17 05:40 Est GFR (MDRD) Af Amer > 60 (>60) 01/09/17 05:40 Est GFR (MDRD) Non-Af > 60 (>60) 01/09/17 05:40 Glucose 103 mg/dL (65-99) H 01/09/17 05:40 Calcium 8.1 mg/dL (8.5-10.1) L 01/09/17 05:40 Corrected Calcium 9.2 mg/dL (8.5-10.1) 01/09/17 05:40 Total Bilirubin 0.10 mg/dL (0.2-1.0) L 01/09/17 05:40 AST 12 Units/L (15-37) L 01/09/17 05:40 ALT 16 Units/L (12-78) 01/09/17 05:40 Alkaline Phosphatase 96 Units/L (46-116) 01/09/17 05:40 C-Reactive Protein 76.00 mg/L (0-3.0) H 01/07/17 05:40 Total Protein 6.1 g/dL (6.4-8.2) L 01/09/17 05:40 Albumin 2.6 g/dL (3.4-5.0) L 01/09/17 05:40 Globulin 3.5 g/dL (2.5-4.5) 01/09/17 05:40 Albumin/Globulin Ratio 0.7 Ratio (1.1-2.1) L 01/09/17 05:40 HCG, Qual Negative <10 mIU/mL 01/06/17 23:30 Specimen Type Clean catch urine 01/07/17 00:11 Urine Color Yellow (YELLOW) 01/07/17 00:11 Urine Appearance Clear (CLEAR) 01/07/17 00:11 Urine pH 7.0 (5.0 - 8.0) 01/07/17 00:11 Ur Specific [place] 1.015 (1.000-1.030) 01/07/17 00:11 Urine Protein Negative (NEGATIVE) 01/07/17 00:11 Urine Glucose (UA) Negative (NEGATIVE) 01/07/17 00:11 Urine Ketones Negative (NEGATIVE) 01/07/17 00:11 Urine Occult Blood Negative (NEGATIVE) 01/07/17 00:11 Urine Nitrite Negative (NEGATIVE) 01/07/17 00:11 Urine Bilirubin Negative (NEGATIVE) 01/07/17 00:11 Urine Urobilinogen 1+ (NORMAL) 01/07/17 00:11 Ur Leukocyte Esterase 1+ (NEGATIVE) 01/07/17 00:11 Urine RBC 0-3 /HPF (NEGATIVE) 01/07/17 00:11 Urine WBC 1-4 /HPF (NEGATIVE) 01/07/17 00:11 Ur Squamous Epith Cells Numerous /HPF (NEGATIVE) 01/07/17 00:11 Urine Bacteria Trace /HPF (NEGATIVE) 01/07/17 00:11 Ur Culture Indicated? No/not ordered 01/07/17 00:11 Urine Opiates Screen Positive (NEG=<300) A 01/07/17 00:11 Urine Methadone Screen Negative (NEG=<300) 01/07/17 00:11 Ur Barbiturates Screen Negative (NEG=<200) 01/07/17 00:11 Ur Phencyclidine Scrn Negative (NEG=<25) 01/07/17 00:11 Ur Amphetamines Screen Positive (NEG=<1000) A 01/07/17 00:11 U Benzodiazepines Scrn Positive (NEG=<200) A 01/07/17 00:11 Urine Cocaine Screen Negative (NEG=<300) 01/07/17 00:11 U Marijuana (THC) Screen Positive (NEG=<50) A 01/07/17 00:11 - Plan (1) Abscess of finger of left hand Status: Acute (2) Cellulitis and abscess of finger, unspecified Status: Acute Plan: continue iv atbx, iv pain control. post op ortho wound care instructions
[2017-01-10] MEDS: NS 1000 ML 1,000 ML IV SCH ×4 (00:04→19:33)
[2017-01-10] MEDS: DILAUDID INJ IVP PRN ×4 (01:39→18:50)
[2017-01-10] MEDS: TORADOL 30 MG VIAL IVP PRN (05:29)
[2017-01-10 06:15] LABS: BASOPHILS % (AUTO) 0.9 % (0.2-1.0); EOSINOPHILS # (AUTO) 0.2 x10^3/uL (0.0-0.2); EOSINOPHILS % (AUTO) 4.2 % (0.9-2.9); HEMOGLOBIN 12.2 g/dL (12.0-16.0); LYMPHOCYTES # (AUTO) 1.9 X10^3/uL (1.3-2.9); LYMPHOCYTES % (AUTO) 40.8 % (21.0-51.0); MEAN CORPUSCULAR HEMOGLOBIN 29.7 pg (27.0-34.0); MEAN CORPUSCULAR HGB CONC 33.9 g/dL (33.0-35.0); MEAN CORPUSCULAR VOLUME 87.6 fL (80.0-100.0); MEAN PLATELET VOLUME 8.8 fL (7.4-11.0); MONOCYTES # (AUTO) 0.5 x10^3/uL (0.3-0.8); MONOCYTES % (AUTO) 10.5 % (0.0-13.0); NEUTROPHILS # (AUTO) 2.1 x10^3/uL (2.2-4.8); NEUTROPHILS % (AUTO) 43.6 % (42.0-75.0); PLATELET COUNT 267 X10^3/uL (150.0-450.0); RED BLOOD COUNT 4.11 X10^6/uL (3.5-5.4); RED CELL DISTRIBUTION WIDTH 12.3 % (11.6-16.5); WHITE BLOOD COUNT 4.7 X10^3/uL (3.6-10.0)
[2017-01-10 06:31] LABS: ALANINE AMINOTRANSFERASE 17 Units/L (12-78); ALBUMIN 2.7 g/dL (3.4-5.0); ALKALINE PHOSPHATASE 96 Units/L (46-116); ASPARTATE AMINO TRANSFERASE 12 Units/L (15-37); BLOOD UREA NITROGEN 5 mg/dL (7-18); CALCIUM 8.3 mg/dL (8.5-10.1); CHLORIDE 107 mmol/L (98-107); COR CA(FOR HYPOALB) 9.3 mg/dL (8.5-10.1); CREATININE 0.45 mg/dL (0.55-1.02); GLUCOSE 100 mg/dL (65-99); SODIUM 141 mmol/L (136-145); TOTAL PROTEIN 6.4 g/dL (6.4-8.2); eGFR BLACK RACES > 60 (>60); eGFR NON BLACK RACES > 60 (>60)
[2017-01-10] MEDS: NICODERM PATCH 21 MG/24 HR TD SCH (09:56)
[2017-01-10] MEDS: TEFLARO 600 MG in NS 50 ML IV + SPIKE MINIBAG* 50 ML IV SCH ×2 (09:56→20:58)
--- NOTE | 2017-01-10 18:45 | PCM.PROG ---
Progress Note - Progress Note for Day of Date: 01/10/17 - Subjective Subjective: The patient is a 26-year-old white female who was admitted to [facility] on 01/07/2017 secondary to abscess formation and surrounding cellulitis involving the left fourth finger. Patient has been seen in consultation by orthopedics as undergone surgical I&D on 01/08. Clean intact dressing, improving pain. plan to continue iv atbx therapy, dressing change per dr friedman - Past Medical Family Social History Past Med/Fam/Surg Hx: No changes since H&P Allergies: Allergies No Known Drug Allergy Allergy (Verified 11/26/13 13:06) - Review of Systems ROS: No change since H&P - Vital Signs and I&O's Vital Signs: Temperature 98.3 F Pulse Rate [Left Brachial] 89 Pulse Rate [Right Brachial] 80 Pulse Rate 87 Respiratory Rate 20 Blood Pressure [Left Arm] 149/92 Blood Pressure [Right Arm] 159/94 Blood Pressure 141/83 O2 Sat by Pulse Oximetry 99 Intake and Output: Intake & Output 01/08/17 01/09/17 01/10/17 01/11/17 11:59 11:59 11:59 11:59 Intake Total 4475 1680 1920 840 Output Total 2600 Balance 1875 1680 1920 840 - Physical Exam Oriented: Normal Eyes: Normal Ear: Normal Nose: Normal Throat: Normal Respiratory: Normal Cardiovascular: Normal : Normal Auscultation: Bowel Sounds: Normal Tenderness: Normal Skin: Other (see musculoskeletal exam) Musculoskeletal: Left, Hand (clean and dry post op dressing intact. The area was markedly tender to palpation.) Psychiatric: Normal Mood Description: Calm Affect: Normal Speech Pattern: Clear, Appropriate - Laboratory and Diagnostics Result Diagrams: 01/10/17 05:35 01/10/17 05:35 Labs: 01/08/17 10:29 Drainage Gram Stain - Final 01/08/17 10:29 Drainage Wound Culture - Final Methicillin Resis Staph Aureus Laboratory WBC 4.7 X10^3/uL (3.6-10.0) 01/10/17 05:35 RBC 4.11 X10^6/uL (3.5-5.4) 01/10/17 05:35 Hgb 12.2 g/dL (12.0-16.0) 01/10/17 05:35 Hct 36.0 % (36.0-47.0) 01/10/17 05:35 MCV 87.6 fL (80.0-100.0) 01/10/17 05:35 MCH 29.7 pg (27.0-34.0) 01/10/17 05:35 MCHC 33.9 g/dL (33.0-35.0) 01/10/17 05:35 RDW 12.3 % (11.6-16.5) 01/10/17 05:35 Plt Count 267 X10^3/uL (150.0-450.0) 01/10/17 05:35 MPV 8.8 fL (7.4-11.0) 01/10/17 05:35 Neut % 43.6 % (42.0-75.0) 01/10/17 05:35 Lymph % 40.8 % (21.0-51.0) 01/10/17 05:35 [place] % 10.5 % (0.0-13.0) 01/10/17 05:35 Eos % 4.2 % (0.9-2.9) H 01/10/17 05:35 Baso % 0.9 % (0.2-1.0) 01/10/17 05:35 Neut # 2.1 x10^3/uL (2.2-4.8) L 01/10/17 05:35 Lymph # 1.9 X10^3/uL (1.3-2.9) 01/10/17 05:35 [place] # 0.5 x10^3/uL (0.3-0.8) 01/10/17 05:35 Eos # 0.2 x10^3/uL (0.0-0.2) 01/10/17 05:35 Baso # 0.0 X10^3/uL (0.0-0.1) 01/10/17 05:35 Absolute Nucleated RBC 0.0 /100WBC 01/10/17 05:35 ESR 17 MM/HOUR (0-20) 01/07/17 05:40 Sodium 141 mmol/L (136-145) 01/10/17 05:35 Corrected Sodium TNP 01/10/17 05:35 Potassium 3.9 mmol/L (3.5-5.1) 01/10/17 05:35 Chloride 107 mmol/L (98-107) 01/10/17 05:35 Carbon Dioxide 28.0 mmol/L (21-32) 01/10/17 05:35 BUN 5 mg/dL (7-18) L 01/10/17 05:35 Creatinine 0.45 mg/dL (0.55-1.02) L 01/10/17 05:35 Est GFR (MDRD) Af Amer > 60 (>60) 01/10/17 05:35 Est GFR (MDRD) Non-Af > 60 (>60) 01/10/17 05:35 Glucose 100 mg/dL (65-99) H 01/10/17 05:35 Calcium 8.3 mg/dL (8.5-10.1) L 01/10/17 05:35 Corrected Calcium 9.3 mg/dL (8.5-10.1) 01/10/17 05:35 Total Bilirubin 0.10 mg/dL (0.2-1.0) L 01/10/17 05:35 AST 12 Units/L (15-37) L 01/10/17 05:35 ALT 17 Units/L (12-78) 01/10/17 05:35 Alkaline Phosphatase 96 Units/L (46-116) 01/10/17 05:35 C-Reactive Protein 76.00 mg/L (0-3.0) H 01/07/17 05:40 Total Protein 6.4 g/dL (6.4-8.2) 01/10/17 05:35 Albumin 2.7 g/dL (3.4-5.0) L 01/10/17 05:35 Globulin 3.7 g/dL (2.5-4.5) 01/10/17 05:35 Albumin/Globulin Ratio 0.7 Ratio (1.1-2.1) L 01/10/17 05:35 HCG, Qual Negative <10 mIU/mL 01/06/17 23:30 Specimen Type Clean catch urine 01/07/17 00:11 Urine Color Yellow (YELLOW) 01/07/17 00:11 Urine Appearance Clear (CLEAR) 01/07/17 00:11 Urine pH 7.0 (5.0 - 8.0) 01/07/17 00:11 Ur Specific [place] 1.015 (1.000-1.030) 01/07/17 00:11 Urine Protein Negative (NEGATIVE) 01/07/17 00:11 Urine Glucose (UA) Negative (NEGATIVE) 01/07/17 00:11 Urine Ketones Negative (NEGATIVE) 01/07/17 00:11 Urine Occult Blood Negative (NEGATIVE) 01/07/17 00:11 Urine Nitrite Negative (NEGATIVE) 01/07/17 00:11 Urine Bilirubin Negative (NEGATIVE) 01/07/17 00:11 Urine Urobilinogen 1+ (NORMAL) 01/07/17 00:11 Ur Leukocyte Esterase 1+ (NEGATIVE) 01/07/17 00:11 Urine RBC 0-3 /HPF (NEGATIVE) 01/07/17 00:11 Urine WBC 1-4 /HPF (NEGATIVE) 01/07/17 00:11 Ur Squamous Epith Cells Numerous /HPF (NEGATIVE) 01/07/17 00:11 Urine Bacteria Trace /HPF (NEGATIVE) 01/07/17 00:11 Ur Culture Indicated? No/not ordered 01/07/17 00:11 Urine Opiates Screen Positive (NEG=<300) A 01/07/17 00:11 Urine Methadone Screen Negative (NEG=<300) 01/07/17 00:11 Ur Barbiturates Screen Negative (NEG=<200) 01/07/17 00:11 Ur Phencyclidine Scrn Negative (NEG=<25) 01/07/17 00:11 Ur Amphetamines Screen Positive (NEG=<1000) A 01/07/17 00:11 U Benzodiazepines Scrn Positive (NEG=<200) A 01/07/17 00:11 Urine Cocaine Screen Negative (NEG=<300) 01/07/17 00:11 U Marijuana (THC) Screen Positive (NEG=<50) A 01/07/17 00:11 - Plan (1) Cellulitis and abscess of finger, unspecified Status: Acute Plan: continue iv atbx, iv pain control. post op ortho wound care instructions (2) Abscess of finger of left hand Status: Acute
[2017-01-10] MEDS ORDERED: CONSULT PHARMACY - ANTIBIOTIC XX SCH (20:00)
[2017-01-10] MEDS: PHENERGAN TAB 25 MG PO PRN (21:05)
[2017-01-10] MEDS: MOTRIN TAB 600 MG PO PRN (21:05)
[2017-01-11] MEDS: NS 1000 ML 1,000 ML IV SCH ×4 (01:34→17:28)
[2017-01-11] MEDS: DILAUDID INJ IVP PRN ×5 (05:30→23:00)
[2017-01-11 06:52] LABS: BASOPHILS % (AUTO) 0.5 % (0.2-1.0); EOSINOPHILS # (AUTO) 0.2 x10^3/uL (0.0-0.2); HEMATOCRIT 35.3 % (36.0-47.0); LYMPHOCYTES # (AUTO) 1.8 X10^3/uL (1.3-2.9); LYMPHOCYTES % (AUTO) 38.5 % (21.0-51.0); MEAN CORPUSCULAR HEMOGLOBIN 29.7 pg (27.0-34.0); MEAN CORPUSCULAR VOLUME 87.5 fL (80.0-100.0); MONOCYTES # (AUTO) 0.5 x10^3/uL (0.3-0.8); MONOCYTES % (AUTO) 10.5 % (0.0-13.0); NEUTROPHILS # (AUTO) 2.1 x10^3/uL (2.2-4.8); NEUTROPHILS % (AUTO) 45.5 % (42.0-75.0); PLATELET COUNT 272 X10^3/uL (150.0-450.0); RED BLOOD COUNT 4.03 X10^6/uL (3.5-5.4); RED CELL DISTRIBUTION WIDTH 12.6 % (11.6-16.5); WHITE BLOOD COUNT 4.6 X10^3/uL (3.6-10.0)
[2017-01-11 06:59] LABS: ALANINE AMINOTRANSFERASE 18 Units/L (12-78); ALBUMIN 2.8 g/dL (3.4-5.0); ALKALINE PHOSPHATASE 91 Units/L (46-116); ASPARTATE AMINO TRANSFERASE 11 Units/L (15-37); BLOOD UREA NITROGEN 11 mg/dL (7-18); CALCIUM 8.4 mg/dL (8.5-10.1); CARBON DIOXIDE 28.4 mmol/L (21-32); CHLORIDE 105 mmol/L (98-107); COR CA(FOR HYPOALB) 9.4 mg/dL (8.5-10.1); CREATININE 0.48 mg/dL (0.55-1.02); GLUCOSE 93 mg/dL (65-99); SODIUM 141 mmol/L (136-145); TOTAL PROTEIN 6.5 g/dL (6.4-8.2); eGFR BLACK RACES > 60 (>60); eGFR NON BLACK RACES > 60 (>60)
[2017-01-11] MEDS: TORADOL 30 MG VIAL IVP PRN ×2 (09:03→17:28)
[2017-01-11] MEDS: TEFLARO 600 MG in NS 50 ML IV + SPIKE MINIBAG* 50 ML IV SCH ×2 (09:07→21:59)
[2017-01-11] MEDS: NICODERM PATCH 21 MG/24 HR TD SCH (09:08)
[2017-01-11] MEDS: MILK OF MAGNESIA PO SCH ×2 (13:39→22:00)
--- NOTE | 2017-01-11 18:43 | PCM.PROG ---
Progress Note - Progress Note for Day of Date: 01/11/17 - Subjective Subjective: The patient is a 26-year-old white female who was admitted to [facility] on 01/07/2017 secondary to abscess formation and surrounding cellulitis involving the left fourth finger. Patient has been seen in consultation by orthopedics as undergone surgical I&D on 01/08. Clean intact dressing, improving pain. plan to continue iv atbx therapy, dressing change per dr arriaza today, will d/c home when clear per dr friedman - Past Medical Family Social History Past Med/Fam/Surg Hx: No changes since H&P Allergies: Allergies No Known Drug Allergy Allergy (Verified 11/26/13 13:06) - Review of Systems ROS: No change since H&P - Vital Signs and I&O's Vital Signs: Temperature 98.4 F Pulse Rate [Left Brachial] 69 Pulse Rate [Right Brachial] 90 Pulse Rate 87 Respiratory Rate 20 Blood Pressure [Left Arm] 130/80 Blood Pressure [Right Arm] 142/91 Blood Pressure 141/83 O2 Sat by Pulse Oximetry 97 Intake and Output: Intake & Output 01/09/17 01/10/17 01/11/17 01/12/17 11:59 11:59 11:59 11:59 Intake Total 1680 1920 1560 1765 Balance 1680 1920 1560 1765 - Physical Exam Oriented: Normal Eyes: Normal Ear: Normal Nose: Normal Throat: Normal Respiratory: Normal Cardiovascular: Normal : Normal Auscultation: Bowel Sounds: Normal Tenderness: Normal Skin: Other (see musculoskeletal exam) Musculoskeletal: Left, Hand (clean and dry post op dressing intact. The area was markedly tender to palpation.) Psychiatric: Normal Mood Description: Calm Affect: Normal Speech Pattern: Clear, Appropriate - Laboratory and Diagnostics Result Diagrams: 01/11/17 05:23 01/11/17 05:23 Labs: 01/08/17 10:29 Drainage Gram Stain - Final 01/08/17 10:29 Drainage Wound Culture - Final Methicillin Resis Staph Aureus Laboratory WBC 4.6 X10^3/uL (3.6-10.0) 01/11/17 05:23 RBC 4.03 X10^6/uL (3.5-5.4) 01/11/17 05:23 Hgb 12.0 g/dL (12.0-16.0) 01/11/17 05:23 Hct 35.3 % (36.0-47.0) L 01/11/17 05:23 MCV 87.5 fL (80.0-100.0) 01/11/17 05:23 MCH 29.7 pg (27.0-34.0) 01/11/17 05:23 MCHC 34.0 g/dL (33.0-35.0) 01/11/17 05:23 RDW 12.6 % (11.6-16.5) 01/11/17 05:23 Plt Count 272 X10^3/uL (150.0-450.0) 01/11/17 05:23 MPV 9.0 fL (7.4-11.0) 01/11/17 05:23 Neut % 45.5 % (42.0-75.0) 01/11/17 05:23 Lymph % 38.5 % (21.0-51.0) 01/11/17 05:23 [place] % 10.5 % (0.0-13.0) 01/11/17 05:23 Eos % 5.0 % (0.9-2.9) H 01/11/17 05:23 Baso % 0.5 % (0.2-1.0) 01/11/17 05:23 Neut # 2.1 x10^3/uL (2.2-4.8) L 01/11/17 05:23 Lymph # 1.8 X10^3/uL (1.3-2.9) 01/11/17 05:23 [place] # 0.5 x10^3/uL (0.3-0.8) 01/11/17 05:23 Eos # 0.2 x10^3/uL (0.0-0.2) 01/11/17 05:23 Baso # 0.0 X10^3/uL (0.0-0.1) 01/11/17 05:23 Absolute Nucleated RBC 0.0 /100WBC 01/11/17 05:23 ESR 17 MM/HOUR (0-20) 01/07/17 05:40 Sodium 141 mmol/L (136-145) 01/11/17 05:23 Corrected Sodium TNP 01/11/17 05:23 Potassium 4.0 mmol/L (3.5-5.1) 01/11/17 05:23 Chloride 105 mmol/L (98-107) 01/11/17 05:23 Carbon Dioxide 28.4 mmol/L (21-32) 01/11/17 05:23 BUN 11 mg/dL (7-18) 01/11/17 05:23 Creatinine 0.48 mg/dL (0.55-1.02) L 01/11/17 05:23 Est GFR (MDRD) Af Amer > 60 (>60) 01/11/17 05:23 Est GFR (MDRD) Non-Af > 60 (>60) 01/11/17 05:23 Glucose 93 mg/dL (65-99) 01/11/17 05:23 Calcium 8.4 mg/dL (8.5-10.1) L 01/11/17 05:23 Corrected Calcium 9.4 mg/dL (8.5-10.1) 01/11/17 05:23 Total Bilirubin 0.10 mg/dL (0.2-1.0) L 01/11/17 05:23 AST 11 Units/L (15-37) L 01/11/17 05:23 ALT 18 Units/L (12-78) 01/11/17 05:23 Alkaline Phosphatase 91 Units/L (46-116) 01/11/17 05:23 C-Reactive Protein 76.00 mg/L (0-3.0) H 01/07/17 05:40 Total Protein 6.5 g/dL (6.4-8.2) 01/11/17 05:23 Albumin 2.8 g/dL (3.4-5.0) L 01/11/17 05:23 Globulin 3.7 g/dL (2.5-4.5) 01/11/17 05:23 Albumin/Globulin Ratio 0.8 Ratio (1.1-2.1) L 01/11/17 05:23 HCG, Qual Negative <10 mIU/mL 01/06/17 23:30 Specimen Type Clean catch urine 01/07/17 00:11 Urine Color Yellow (YELLOW) 01/07/17 00:11 Urine Appearance Clear (CLEAR) 01/07/17 00:11 Urine pH 7.0 (5.0 - 8.0) 01/07/17 00:11 Ur Specific [place] 1.015 (1.000-1.030) 01/07/17 00:11 Urine Protein Negative (NEGATIVE) 01/07/17 00:11 Urine Glucose (UA) Negative (NEGATIVE) 01/07/17 00:11 Urine Ketones Negative (NEGATIVE) 01/07/17 00:11 Urine Occult Blood Negative (NEGATIVE) 01/07/17 00:11 Urine Nitrite Negative (NEGATIVE) 01/07/17 00:11 Urine Bilirubin Negative (NEGATIVE) 01/07/17 00:11 Urine Urobilinogen 1+ (NORMAL) 01/07/17 00:11 Ur Leukocyte Esterase 1+ (NEGATIVE) 01/07/17 00:11 Urine RBC 0-3 /HPF (NEGATIVE) 01/07/17 00:11 Urine WBC 1-4 /HPF (NEGATIVE) 01/07/17 00:11 Ur Squamous Epith Cells Numerous /HPF (NEGATIVE) 01/07/17 00:11 Urine Bacteria Trace /HPF (NEGATIVE) 01/07/17 00:11 Ur Culture Indicated? No/not ordered 01/07/17 00:11 Urine Opiates Screen Positive (NEG=<300) A 01/07/17 00:11 Urine Methadone Screen Negative (NEG=<300) 01/07/17 00:11 Ur Barbiturates Screen Negative (NEG=<200) 01/07/17 00:11 Ur Phencyclidine Scrn Negative (NEG=<25) 01/07/17 00:11 Ur Amphetamines Screen Positive (NEG=<1000) A 01/07/17 00:11 U Benzodiazepines Scrn Positive (NEG=<200) A 01/07/17 00:11 Urine Cocaine Screen Negative (NEG=<300) 01/07/17 00:11 U Marijuana (THC) Screen Positive (NEG=<50) A 01/07/17 00:11 - Plan (1) Cellulitis and abscess of finger, unspecified Status: Acute Plan: continue iv atbx, iv pain control. post op ortho wound care instructions (2) Abscess of finger of left hand Status: Acute Plan: culture MRSA,sensative to po bactrim. WILL D/C WHEN CLEAR PER DR FRIEDMAN , ORTHO
[2017-01-11] MEDS ORDERED: COLACE CAP 100 MG PO SCH (21:00)
[2017-01-12] MEDS: DILAUDID INJ IVP PRN ×2 (03:30→10:54)
[2017-01-12 06:17] LABS: ALANINE AMINOTRANSFERASE 16 Units/L (12-78); ALBUMIN 3.1 g/dL (3.4-5.0); ALKALINE PHOSPHATASE 97 Units/L (46-116); ASPARTATE AMINO TRANSFERASE 14 Units/L (15-37); BLOOD UREA NITROGEN 10 mg/dL (7-18); CALCIUM 8.9 mg/dL (8.5-10.1); CHLORIDE 104 mmol/L (98-107); COR CA(FOR HYPOALB) 9.6 mg/dL (8.5-10.1); CREATININE 0.54 mg/dL (0.55-1.02); GLUCOSE 92 mg/dL (65-99); SODIUM 139 mmol/L (136-145); TOTAL PROTEIN 7.1 g/dL (6.4-8.2); eGFR BLACK RACES > 60 (>60); eGFR NON BLACK RACES > 60 (>60)
[2017-01-12 06:25] LABS: BASOPHILS % (AUTO) 0.8 % (0.2-1.0); EOSINOPHILS # (AUTO) 0.3 x10^3/uL (0.0-0.2); EOSINOPHILS % (AUTO) 5.8 % (0.9-2.9); HEMATOCRIT 38.8 % (36.0-47.0); HEMOGLOBIN 13.1 g/dL (12.0-16.0); LYMPHOCYTES % (AUTO) 41.5 % (21.0-51.0); MEAN CORPUSCULAR HEMOGLOBIN 29.8 pg (27.0-34.0); MEAN CORPUSCULAR HGB CONC 33.8 g/dL (33.0-35.0); MEAN PLATELET VOLUME 8.5 fL (7.4-11.0); MONOCYTES # (AUTO) 0.5 x10^3/uL (0.3-0.8); MONOCYTES % (AUTO) 9.5 % (0.0-13.0); NEUTROPHILS # (AUTO) 2.1 x10^3/uL (2.2-4.8); NEUTROPHILS % (AUTO) 42.4 % (42.0-75.0); PLATELET COUNT 309 X10^3/uL (150.0-450.0); RED CELL DISTRIBUTION WIDTH 12.4 % (11.6-16.5); WHITE BLOOD COUNT 4.9 X10^3/uL (3.6-10.0)
[2017-01-12] MEDS: NS 1000 ML 1,000 ML IV SCH (06:27)
[2017-01-12] MEDS: TORADOL 30 MG VIAL IVP PRN (06:28)
[2017-01-12] MEDS: TEFLARO 600 MG in NS 50 ML IV + SPIKE MINIBAG* 50 ML IV SCH (09:23)
[2017-01-12] MEDS: MILK OF MAGNESIA PO SCH (09:24)
[2017-01-12] MEDS: NICODERM PATCH 21 MG/24 HR TD SCH (09:24)
[2017-01-12] MEDS ORDERED: NS IRRIGATION 500 ML IR ONE (11:46)
[2017-01-12] MEDS: MOTRIN TAB 600 MG PO PRN (13:42)
[2017-01-12 17:12] VITALS: BP 152/87
== END 2017-01-12 18:10 | disposition home or self-care (01) ==
LOC: ER 21:42 → MED/SURG 01-07 01:08
PROVIDERS: ADMIT Internal Medicine; ATTEND Internal Medicine
PROC: 3E0234Z Introduction of Serum, Toxoid and Vaccine into Muscle, Percutaneous Approach (ICD-10-PCS; 2017-01-07)
PROC: 0X9K3ZZ Drainage of Left Hand, Percutaneous Approach (ICD-10-PCS; principal; 2017-01-08 08:45)
DX: L03.012 Cellulitis of left finger (principal); M65.842 Other synovitis and tenosynovitis, left hand; Z23 Encounter for immunization; I10 Essential (primary) hypertension; E11.65 Type 2 diabetes mellitus with hyperglycemia
CPT/HCPCS: 36415; 73130; 73221; 80048; 80053; 80307; 81001; 84703; 85025; 85652; 86140; 87040; 87070; 87075; 87077; 87186; 87205; 90471; 96365; 96374; 96375; 99284; A4216; A4222; Q0169; S0020; G0378; G0434; J0690; J0712; J1170; J1885; J2001; J2185; J2250; J2405; J2765; J3010; J3370; J3490; J7042; J7120